=== PATIENT | male | born 1950 | race Caucasian/White ===

== ENCOUNTER 2020-08-14 16:53 | Outpatient (CLI) | payer MEDICARE, BC | END 2020-08-14 16:54 | disposition home or self-care (01) | LOC: CSHRAD 16:53 | PROVIDERS: ATTEND Internal Medicine | DX: R07.81 Pleurodynia (principal); J90 Pleural effusion, not elsewhere classified; J98.11 Atelectasis | CPT/HCPCS: 71046 ==